=== PATIENT | male | born 1950 | race Two or more races ===

== ENCOUNTER 2020-07-31 21:47 | Emergency (ER) | payer OTHER ==
[~2020-07-31] VITALS: Ht 172.7 cm; Wt 76.2 kg
[~2020-07-31 21:47] MED LIST: AMBIEN10 MG; COZAAR50 MG
[2020-07-31] MEDS ORDERED: ATORVASTATIN CA10 MG PO (22:12)
[2020-07-31] MEDS ORDERED: TAMS0.4C PO (22:12)
[2020-07-31] MEDS ORDERED: PROTONIX20 MG PO (22:13)
== END 2020-07-31 23:43 | disposition home or self-care (01) ==
LOC: ER 21:47
DX: R41.0 Disorientation, unspecified (principal)

== ENCOUNTER → 2020-08-02 | Outpatient (CLI) | payer OTHER ==
[~2020-08-02] MED LIST changes: +ATORVASTATIN CA10 MG PO; +PROTONIX20 MG PO; +TAMS0.4C PO
== END | disposition home or self-care (01) ==
LOC: MRI 08-01 14:15
DX: R41.0 Disorientation, unspecified (principal)
CPT/HCPCS: 70551